=== PATIENT | male | born 1955 | race African-American/Black ===

== ENCOUNTER 2020-09-08 07:00 | Outpatient (CLI) | payer MEDICARE, BC ==
--- NOTE | 2020-09-08 07:50 | ULT ---
Ultrasound of the abdominal aorta: 09/08/2020 COMPARISON: None HISTORY: Physical examination, assess for abdominal aortic aneurysm TECHNIQUE: Multiplanar grayscale sonographic imaging of the abdominal aorta obtained. Provided imagin g includes color flow and spectral analysis FINDINGS: Portions of the abdominal aorta are completely obscured by bowel gas, especially the distal abdominal aorta and the aortic bifurcation. Both common iliac arteries are obscured by bowel gas as well. Proximal abdominal aorta measures up to 2.5 cm and mid abdominal aorta measures up to 2.1 cm. IMPRESSION: Imaged portions of the abdominal aorta demonstrate no evidence for aneurysm. However, the distal abdominal aorta could not be visualized. CT would be required to fully exclude abdominal aortic aneurysm.
[2020-09-08 07:58] LABS: Estimated GFR-MDRD - POC Greater than 90
--- NOTE | 2020-09-08 08:26 | CT ---
CT ANGIOGRAM THORAX WITH CONTRAST: DATE: 09/08/2020 HISTORY: 65-year-old male with thoracic aortic aneurysm. "Z00.00, annual physical exam" COMPARISON: None TECHNIQUE: IV injection of iodinated contrast. 3-D MIP reconstructions. FINDINGS: Ascending aorta: 3.8 cm. Aortic arch: 3.2 cm. Descending thoracic aorta: 2.7 cm. No aortic dissection Moderate calcified and noncalcified atherosclerotic plaque throughout the descending aorta and to a l horacio degree aortic arch. No cardiomegaly, pericardial effusion, or pneumothorax. Trachea and major bronchi are patent and clear. Abutting the posterior medial pleural surface, there is an approximately 5 x 2.5 x 1.5 cm airspace op acity-consolidation in posterior medial base of right lower lobe, located approximately 2.5 to 3 cm superior to the diaphragmatic surface. No associated air bronchogram. There is an associated tiny right pleural effusion abutting this. The rest of the right lung is clear. Left lung is essentially clear. Thoracic vertebral body heights are maintained. No mediastinal or hilar lymphadenopathy. IMPRESSION: 1) ectasia of ascending thoracic aorta. 2) atherosclerosis of thoracic aorta. 3) no thoracic aortic aneurysm. 4) a broad platelike pulmonary opacity in the right lower lobe abutting the pleural surface adjacent to tiny right pleural effusion. Etiology uncertain. Possibilities include organizing pneumonia, pulmonary scar, and lung cancer, although the appearance is not typical for any of these. Recommend s hort interval follow-up chest CT in one to 3 months.
[2020-09-08] MEDS ORDERED: Iopamidol-370 76% 500 ML 1 ML ONE (13:18)
== END 2020-09-08 07:01 | disposition home or self-care (01) ==
LOC: BICULT 07:00
PROVIDERS: ATTEND Family Medicine
DX: Z00.00 Encounter for general adult medical examination without abnormal findings (principal); I77.810 Thoracic aortic ectasia; I70.0 Atherosclerosis of aorta; R91.8 Other nonspecific abnormal finding of lung field; J90 Pleural effusion, not elsewhere classified
CPT/HCPCS: 71275; 76775; 82565; Q9967

== ENCOUNTER 2021-03-02 01:09 | Inpatient (IN) | payer MEDICARE, SELFPAY ==
[2021-03-02 02:02] LABS: #Basophils 0.1 thou/uL (0.0-0.2); #Eosinphils 0.1 thou/uL (0.0-0.7); #Monocytes 0.6 thou/uL (0.11-0.59); #Neutrophils 6.4 thou/uL (1.40-6.50); %Basophils 0.8 % (0.0-1.0); %Eosinophils 1.5 % (0.0-10.0); %Lymphocytes 21.6 % (21.0-51.0); %Monocytes 6.4 % (0.0-10.0); %Neutrophils 69.7 % (42.0-75.0); Hemoglobin 15.3 g/dL (14.0-18.0); Mean Corpuscular HGB CONC 33.9 g/dL (32.0-36.0); Mean Corpuscular Hemoglobin 31.3 pg (27.0-31.0); Mean Corpuscular Volume 92.4 fL (78.0-98.0); Mean Platelet Volume 9.4 fL (7.4-10.4); Platelet Count 171 thou/uL (130-400); RBC Distribution Width 14.3 % (11.5-14.5); Red Blood Cell (RBC) Count 4.88 mill/uL (4.70-6.10); White Blood Cell (WBC) Count 9.2 thou/uL (4.8-10.8)
[2021-03-02 02:25] LABS: ALT (SGPT) 9 U/L (8-55); AST (SGOT) 19 U/L (5-34); Albumin 4.1 g/dL (3.4-4.8); Alkaline Phosphatase 93 U/L (40-110); Anion Gap 19 mmol/L (10-20); BUN (Urea Nitrogen) 8 mg/dL (8.4-25.7); Bilirubin, Total 0.7 mg/dL (0.2-1.2); Calc. Creatinine Clearance 0 mL/min (70-130); Calcium 9.2 mg/dL (7.8-10.44); Carbon Dioxide 13 mmol/L (23-31); Chloride 100 mmol/L (98-107); Globulin 3.8 g/dL (2.4-3.5); Glucose 257 mg/dL (80-115); Potassium 4.1 mmol/L (3.5-5.1); Protein, Total 7.9 g/dL (5.8-8.1); Sodium 128 mmol/L (136-145)
[2021-03-02] MEDS ORDERED: Furosemide 40 MG/4 ML VIAL ONE (03:02)
[2021-03-02 05:16] LABS: SARS-CoV-2 NAA Rapid Test Not Detected (NotDetected)
[2021-03-02 06:05] LABS: Cardiac Risk 3.4 (Less than 4.5)
[2021-03-02 06:36] LABS: Hemoglobin A1c 5.3 % (4.0-6.0)
[2021-03-02 07:22] LABS: Amphetamine Not Detected (NotDetected); Barbiturates Screen Not Detected (NotDetected); Benzodiazepine Screen Not Detected (NotDetected); Cocaine Metabolite Screen Detected (NotDetected); Medtox Control Line Valid? VALID (VALID); Medtox Reader # READER 4; Methadone Not Detected (NotDetected); Methamphetamine Not Detected (NotDetected); Opiate Screen Not Detected (NotDetected); Oxycodone Screen Not Detected (NotDetected); Phencyclidine (PCP) Not Detected (NotDetected); THC/Cannabinoid Screen Not Detected (NotDetected); Tricyclic Screen Not Detected (NotDetected)
[2021-03-02] MEDS ORDERED: Lisinopril 10 MG TAB ONE (08:31)
[2021-03-02] MEDS ORDERED: Furosemide 20 MG/2 ML VIAL ONE (08:31)
[2021-03-02] MEDS ORDERED: Enoxaparin Sodium 40 MG/0.4 ML SYRINGE ONE (08:31)
[2021-03-02] MEDS: Enoxaparin Sodium 40 MG/0.4 ML SYRINGE SC SCH (08:40)
[2021-03-02] MEDS: Lisinopril 10 MG TAB PO SCH (08:41)
[2021-03-02] MEDS: Furosemide 40 MG/4 ML VIAL SLOW IVP SCH (08:41)
[2021-03-02] MEDS ORDERED: Atorvastatin Calcium 40 MG TAB PO SCH (09:00)
[2021-03-02] MEDS ORDERED: Sodium Chloride 0.9% 10 ML ONE (20:38)
[2021-03-02] MEDS: Atorvastatin Calcium 40 MG TAB PO SCH (20:53)
[2021-03-03 04:12] LABS: #Eosinphils 0.1 thou/uL (0.0-0.7); #Lymphocytes 1.5 thou/uL (1.20-3.40); #Monocytes 1.7 thou/uL (0.11-0.59); #Neutrophils 10.5 thou/uL (1.40-6.50); %Basophils 0.2 % (0.0-1.0); %Eosinophils 0.5 % (0.0-10.0); %Lymphocytes 10.6 % (21.0-51.0); %Monocytes 12.1 % (0.0-10.0); %Neutrophils 76.7 % (42.0-75.0); Hemoglobin 13.1 g/dL (14.0-18.0); Mean Corpuscular HGB CONC 32.5 g/dL (32.0-36.0); Mean Corpuscular Hemoglobin 29.5 pg (27.0-31.0); Mean Corpuscular Volume 90.8 fL (78.0-98.0); Mean Platelet Volume 9.6 fL (7.4-10.4); Platelet Count 183 thou/uL (130-400); RBC Distribution Width 14.3 % (11.5-14.5); Red Blood Cell (RBC) Count 4.43 mill/uL (4.70-6.10); White Blood Cell (WBC) Count 13.7 thou/uL (4.8-10.8)
[2021-03-03 04:31] LABS: Anion Gap 15 mmol/L (10-20); BUN (Urea Nitrogen) 18 mg/dL (8.4-25.7); Calc. Creatinine Clearance 64 mL/min (70-130); Calcium 9.5 mg/dL (7.8-10.44); Carbon Dioxide 24 mmol/L (23-31); Chloride 97 mmol/L (98-107); Glucose 116 mg/dL (80-115); Potassium 4.6 mmol/L (3.5-5.1); Sodium 131 mmol/L (136-145)
[2021-03-03] MEDS: Furosemide 40 MG/4 ML VIAL SLOW IVP SCH (08:30)
[2021-03-03] MEDS: Lisinopril 10 MG TAB PO SCH (08:30)
[2021-03-03] MEDS: Carvedilol 3.125 MG TAB PO SCH ×2 (08:30→17:09)
[2021-03-03] MEDS: Enoxaparin Sodium 40 MG/0.4 ML SYRINGE SC SCH (08:30)
[2021-03-03] MEDS: Atorvastatin Calcium 40 MG TAB PO SCH (19:39)
[2021-03-04 04:38] LABS: #Basophils 0.1 thou/uL (0.0-0.2); #Eosinphils 0.2 thou/uL (0.0-0.7); #Lymphocytes 1.9 thou/uL (1.20-3.40); #Neutrophils 5.2 thou/uL (1.40-6.50); %Basophils 1.7 % (0.0-1.0); %Eosinophils 2.4 % (0.0-10.0); %Lymphocytes 22.5 % (21.0-51.0); %Monocytes 12.1 % (0.0-10.0); %Neutrophils 61.2 % (42.0-75.0); Hemoglobin 13.6 g/dL (14.0-18.0); Mean Corpuscular HGB CONC 32.1 g/dL (32.0-36.0); Mean Corpuscular Hemoglobin 29.8 pg (27.0-31.0); Mean Corpuscular Volume 92.9 fL (78.0-98.0); Mean Platelet Volume 9.5 fL (7.4-10.4); Platelet Count 177 thou/uL (130-400); RBC Distribution Width 14.2 % (11.5-14.5); Red Blood Cell (RBC) Count 4.56 mill/uL (4.70-6.10); White Blood Cell (WBC) Count 8.5 thou/uL (4.8-10.8)
[2021-03-04 05:07] LABS: Anion Gap 15 mmol/L (10-20); BUN (Urea Nitrogen) 16 mg/dL (8.4-25.7); Calc. Creatinine Clearance 74 mL/min (70-130); Carbon Dioxide 19 mmol/L (23-31); Chloride 101 mmol/L (98-107); Glucose 88 mg/dL (80-115); Potassium 4.1 mmol/L (3.5-5.1); Sodium 131 mmol/L (136-145)
[2021-03-04] MEDS ORDERED: Diazepam 5 MG TAB PO SCH (07:45)
[2021-03-04] MEDS: Lisinopril 5 MG TAB PO SCH (08:47)
[2021-03-04] MEDS: Communication Order-Pharmacy FS SCH (08:48)
[2021-03-04] MEDS: Carvedilol 3.125 MG TAB PO SCH ×2 (08:48→17:23)
[2021-03-04] MEDS: Enoxaparin Sodium 40 MG/0.4 ML SYRINGE SC SCH (08:48)
[2021-03-04] MEDS: Furosemide 40 MG/4 ML VIAL SLOW IVP SCH (08:48)
[2021-03-04] MEDS: Atorvastatin Calcium 40 MG TAB PO SCH (20:07)
[2021-03-05 04:27] LABS: #Basophils 0.1 thou/uL (0.0-0.2); #Eosinphils 0.3 thou/uL (0.0-0.7); #Lymphocytes 2.1 thou/uL (1.20-3.40); #Monocytes 1.2 thou/uL (0.11-0.59); #Neutrophils 4.8 thou/uL (1.40-6.50); %Eosinophils 3.6 % (0.0-10.0); %Lymphocytes 25.2 % (21.0-51.0); %Neutrophils 56.1 % (42.0-75.0); Hemoglobin 13.4 g/dL (14.0-18.0); Mean Corpuscular HGB CONC 32.2 g/dL (32.0-36.0); Mean Corpuscular Hemoglobin 29.6 pg (27.0-31.0); Mean Platelet Volume 9.5 fL (7.4-10.4); Platelet Count 193 thou/uL (130-400); RBC Distribution Width 14.1 % (11.5-14.5); Red Blood Cell (RBC) Count 4.52 mill/uL (4.70-6.10); White Blood Cell (WBC) Count 8.5 thou/uL (4.8-10.8)
[2021-03-05 04:55] LABS: Anion Gap 17 mmol/L (10-20); BUN (Urea Nitrogen) 19 mg/dL (8.4-25.7); Calc. Creatinine Clearance 74 mL/min (70-130); Calcium 9.2 mg/dL (7.8-10.44); Carbon Dioxide 19 mmol/L (23-31); Chloride 100 mmol/L (98-107); Glucose 84 mg/dL (80-115); Sodium 132 mmol/L (136-145)
[2021-03-05] MEDS: Carvedilol 3.125 MG TAB PO SCH ×2 (05:30→16:53)
[2021-03-05] MEDS: Lisinopril 5 MG TAB PO SCH (05:30)
[2021-03-05] MEDS: Furosemide 40 MG TAB PO SCH (05:30)
[2021-03-05] MEDS: Sodium Chloride 0.9% 1,000 ML IV SCH (06:15)
[2021-03-05] MEDS: Communication Order-Pharmacy FS SCH (08:57)
[2021-03-05] MEDS: Enoxaparin Sodium 40 MG/0.4 ML SYRINGE SC SCH (08:57)
[2021-03-05] MEDS: Atorvastatin Calcium 40 MG TAB PO SCH (20:53)
[2021-03-06 05:13] LABS: Anion Gap 16 mmol/L (10-20); BUN (Urea Nitrogen) 18 mg/dL (8.4-25.7); Calc. Creatinine Clearance 64 mL/min (70-130); Calcium 9.3 mg/dL (7.8-10.44); Carbon Dioxide 21 mmol/L (23-31); Chloride 99 mmol/L (98-107); Glucose 99 mg/dL (80-115); Potassium 3.9 mmol/L (3.5-5.1); Sodium 132 mmol/L (136-145)
[2021-03-06] MEDS: Lisinopril 5 MG TAB PO SCH (05:16)
[2021-03-06] MEDS: Furosemide 40 MG TAB PO SCH (05:16)
[2021-03-06] MEDS: Carvedilol 3.125 MG TAB PO SCH ×2 (05:16→16:36)
[2021-03-06 05:27] LABS: Hemoglobin 13.1 g/dL (14.0-18.0); Mean Corpuscular HGB CONC 32.2 g/dL (32.0-36.0); Mean Corpuscular Hemoglobin 29.6 pg (27.0-31.0); Mean Platelet Volume 9.5 fL (7.4-10.4); Platelet Count 183 thou/uL (130-400); RBC Distribution Width 14.1 % (11.5-14.5); Red Blood Cell (RBC) Count 4.44 mill/uL (4.70-6.10)
[2021-03-06 05:59] LABS: Band 2 % (5-11); Eosinophils 1 % (0-10); Lymphocytes 26 % (21-51); MDiff Complete? YES; Monocytes 12 % (0-10); Neutrophil 59 % (42-75)
[2021-03-06] MEDS ORDERED: Lidocaine 1% (PF) 30 ML VIAL ONE (06:33)
[2021-03-06] MEDS ORDERED: Fentanyl 100 MCG/2 ML VIAL ONE (07:20)
[2021-03-06] MEDS ORDERED: Midazolam HCl 2 mg/2 ml Vial ONE (07:20)
[2021-03-06] MEDS ORDERED: Nitroglycerin 0.4 MG TAB (25 Tab Bottle) SL PRN (07:42)
[2021-03-06] MEDS ORDERED: Acetaminophen/Codeine 30-300mg Tablet PO PRN ×2 (07:42)
[2021-03-06] MEDS ORDERED: Sodium Chloride 0.9% 200 ML IV PRN (07:42)
[2021-03-06] MEDS: Communication Order-Pharmacy FS SCH (08:12)
[2021-03-06] MEDS ORDERED: Iopamidol 370 76% 100 ML VIAL ONE (08:48)
[2021-03-06] MEDS: Sodium Chloride 0.9% 1,000 ML IV SCH (16:35)
[2021-03-06] MEDS: Atorvastatin Calcium 40 MG TAB PO SCH (20:48)
[2021-03-07 05:27] LABS: Anion Gap 15 mmol/L (10-20); BUN (Urea Nitrogen) 10 mg/dL (8.4-25.7); Calc. Creatinine Clearance 77 mL/min (70-130); Calcium 9.1 mg/dL (7.8-10.44); Carbon Dioxide 21 mmol/L (23-31); Chloride 102 mmol/L (98-107); Glucose 84 mg/dL (80-115); Magnesium 1.9 mg/dL (1.6-2.6); Potassium 4.1 mmol/L (3.5-5.1); Sodium 134 mmol/L (136-145)
[2021-03-07] MEDS: Carvedilol 3.125 MG TAB PO SCH ×2 (09:07→17:14)
[2021-03-07] MEDS: Furosemide 40 MG TAB PO SCH (09:07)
[2021-03-07] MEDS: Lisinopril 5 MG TAB PO SCH (09:07)
[2021-03-07] MEDS: Communication Order-Pharmacy FS SCH (09:08)
[2021-03-07] MEDS ORDERED: Loperamide HCl 2 MG CAP PO PRN (20:37)
[2021-03-07] MEDS: Atorvastatin Calcium 40 MG TAB PO SCH (20:47)
[2021-03-08] MEDS: Communication Order-Pharmacy FS SCH (09:44)
[2021-03-08] MEDS: Lisinopril 5 MG TAB PO SCH (09:45)
[2021-03-08] MEDS: Aspirin 81 mg Enteric Coated Tablet PO SCH (09:46)
[2021-03-08] MEDS: Carvedilol 3.125 MG TAB PO SCH ×2 (09:46→16:13)
[2021-03-08] MEDS: Furosemide 40 MG TAB PO SCH (09:47)
[2021-03-08 14:16] VITALS: BMI 16.3
[2021-03-08] MEDS: Atorvastatin Calcium 40 MG TAB PO SCH (20:00)
[2021-03-09] MEDS: Carvedilol 3.125 MG TAB PO SCH (08:17)
[2021-03-09] MEDS: Furosemide 40 MG TAB PO SCH (08:17)
[2021-03-09] MEDS: Lisinopril 5 MG TAB PO SCH (08:17)
[2021-03-09] MEDS: Communication Order-Pharmacy FS SCH (08:17)
[2021-03-09] MEDS: Aspirin 81 mg Enteric Coated Tablet PO SCH (08:17)
[2021-03-09 11:51] VITALS: TEMP 97.6
[2021-03-09 12:05] VITALS: BP 149/63
== END 2021-03-09 14:40 | disposition home or self-care (01) | DRG 917 ==
LOC: ERS 01:09 → ERHOLD 03:04 → 2NO 17:07
PROVIDERS: ADMIT Emergency Medicine; ATTEND Emergency Medicine
PROC: 4A023N7 Measurement of Cardiac Sampling and Pressure, Left Heart, Percutaneous Approach (ICD-10-PCS; principal; 2021-03-06)
PROC: B2111ZZ Fluoroscopy of Multiple Coronary Arteries using Low Osmolar Contrast (ICD-10-PCS; 2021-03-06)
PROC: B2151ZZ Fluoroscopy of Left Heart using Low Osmolar Contrast (ICD-10-PCS; 2021-03-06)
DX: T40.5X1A Poisoning by cocaine, accidental (unintentional), initial encounter (principal); J96.01 Acute respiratory failure with hypoxia; I50.23 Acute on chronic systolic (congestive) heart failure; E87.3 Alkalosis; E87.1 Hypo-osmolality and hyponatremia; Z20.822 Contact with and (suspected) exposure to COVID-19; F14.10 Cocaine abuse, uncomplicated; I65.01 Occlusion and stenosis of right vertebral artery; F10.10 Alcohol abuse, uncomplicated; E78.5 Hyperlipidemia, unspecified; D72.829 Elevated white blood cell count, unspecified; D64.9 Anemia, unspecified; R91.1 Solitary pulmonary nodule; F17.210 Nicotine dependence, cigarettes, uncomplicated; I49.3 Ventricular premature depolarization; I25.5 Ischemic cardiomyopathy; Z79.899 Other long term (current) drug therapy; Z98.49 Cataract extraction status, unspecified eye; Z91.14 Patient's other noncompliance with medication regimen
CPT/HCPCS: 0240U; 36415; 36416; 71045; 71250; 74230; 76942; 80048; 80053; 80061; 80306; 83036; 83735; 83880; 84484; 85025; 93005; 93306; 93458; 93798; 93880; 94640; 94660; 94760; 96374; 99152; J1650; J1940; J2001; J2250; J3010; J7620; Q9967

== ENCOUNTER 2021-07-08 00:44 | Inpatient (IN) | payer SELFPAY ==
[2021-07-08 01:34] LABS: #Basophils 0.2 thou/uL (0.0-0.2); #Eosinphils 0.3 thou/uL (0.0-0.7); #Lymphocytes 2.3 thou/uL (1.20-3.40); #Monocytes 0.3 thou/uL (0.11-0.59); #Neutrophils 3.8 thou/uL (1.40-6.50); %Basophils 2.3 % (0.0-1.0); %Lymphocytes 33.2 % (21.0-51.0); %Monocytes 4.1 % (0.0-10.0); %Neutrophils 56.4 % (42.0-75.0); Hemoglobin 15.7 g/dL (14.0-18.0); Mean Corpuscular HGB CONC 32.6 g/dL (32.0-36.0); Mean Corpuscular Hemoglobin 31.7 pg (27.0-31.0); Mean Corpuscular Volume 97.4 fL (78.0-98.0); Mean Platelet Volume 9.4 fL (7.4-10.4); Platelet Count 187 thou/uL (130-400); RBC Distribution Width 15.2 % (11.5-14.5); Red Blood Cell (RBC) Count 4.94 mill/uL (4.70-6.10); White Blood Cell (WBC) Count 6.8 thou/uL (4.8-10.8)
[2021-07-08] MEDS ORDERED: Lorazepam 2 MG/ML VIAL IM PRN (01:35)
[2021-07-08] MEDS ORDERED: Lorazepam 1 MG TAB PO PRN (01:35)
[2021-07-08 01:51] LABS: ALT (SGPT) 21 U/L (8-55); AST (SGOT) 49 U/L (5-34); Albumin 4.4 g/dL (3.4-4.8); Alkaline Phosphatase 130 U/L (40-110); BUN (Urea Nitrogen) 13 mg/dL (8.4-25.7); Bilirubin, Total 0.7 mg/dL (0.2-1.2); Calc. Creatinine Clearance 0 mL/min (70-130); Carbon Dioxide 21 mmol/L (23-31); Chloride 104 mmol/L (98-107); Globulin 4.1 g/dL (2.4-3.5); Glucose 168 mg/dL (80-115); Potassium 4.8 mmol/L (3.5-5.1); Protein, Total 8.5 g/dL (5.8-8.1); Sodium 136 mmol/L (136-145)
[2021-07-08 01:53] LABS: Anion Gap 16 mmol/L (10-20)
[2021-07-08] MEDS ORDERED: Aspirin Chewable 81 MG TAB ONE (02:07)
[2021-07-08] MEDS ORDERED: Furosemide 40 MG/4 ML VIAL ONE (02:07)
[2021-07-08] MEDS ORDERED: Nitroglycerin 2% Ointment 1 INCH/1 GM Packet ONE (02:07)
[2021-07-08 02:16] LABS: CKMB 2.1 ng/mL (0-6.6)
[2021-07-08 03:12] LABS: Magnesium 2.1 mg/dL (1.6-2.6); Phosphorus 4.2 mg/dL (2.3-4.7)
[2021-07-08 03:31] LABS: Syphilis Antibody Nonreactive (Nonreactive); Syphilis Antibody Index 0.04 S/CO (<1.00 Non-Reactive)
[2021-07-08 04:09] LABS: Amphetamine Not Detected (NotDetected); Barbiturates Screen Not Detected (NotDetected); Benzodiazepine Screen Not Detected (NotDetected); Cocaine Metabolite Screen Not Detected (NotDetected); Methadone Not Detected (NotDetected); Methamphetamine Not Detected (NotDetected); Opiate Screen Not Detected (NotDetected); Oxycodone Screen Not Detected (NotDetected); Phencyclidine (PCP) Not Detected (NotDetected); THC/Cannabinoid Screen Not Detected (NotDetected); Tricyclic Screen Not Detected (NotDetected)
[2021-07-08 05:02] LABS: Hemoglobin A1c 4.8 % (4.0-6.0)
[2021-07-08 05:14] LABS: ALT (SGPT) 19 U/L (8-55); AST (SGOT) 41 U/L (5-34); Albumin 4.1 g/dL (3.4-4.8); Alkaline Phosphatase 123 U/L (40-110); Bilirubin, Direct 0.3 mg/dL (0.1-0.3); Bilirubin, Total 0.6 mg/dL (0.2-1.2); Protein, Total 8.3 g/dL (5.8-8.1)
[2021-07-08] MEDS: Nicotine 14 MG PATCH TD SCH (08:27)
[2021-07-08] MEDS: Multivit, Therapeutic 1 TAB PO SCH (08:30)
[2021-07-08] MEDS: Atorvastatin Calcium 40 MG TAB PO SCH (08:30)
[2021-07-08] MEDS: Folic Acid 1 MG TAB PO SCH (08:30)
[2021-07-08 08:59] LABS: SARS-CoV-2 NAA Rapid Test Not Detected (NotDetected)
[2021-07-08] MEDS ORDERED: Aspirin Chewable 81 MG TAB PO SCH (09:00)
[2021-07-08] MEDS ORDERED: Lisinopril 5 MG TAB PO SCH (09:00)
[2021-07-08] MEDS ORDERED: Furosemide 40 MG/4 ML VIAL SLOW IVP SCH (09:15)
[2021-07-08] MEDS ORDERED: FLU VACC QS2021-22(65YR UP)/PF 240 MCG/0.7 ML SYRINGE IM ONE (12:00)
[2021-07-08 14:17] LABS: HBCM Index 0.06 S/CO (0-0.79); HBSAg Index 0.29 S/CO (0-0.99); Hep A IgM AB Non-Reactive (NonReactive); Hep A IgM S/CO 0.13 S/CO (0-0.79); Hep B Surf Ag Non-Reactive S/CO (NonReactive); Hep C IgG Ab Non-Reactive (NonReactive); Hep C Index 0.08 S/CO (0-0.79); Hepatitis B Core IgM Abs Non-Reactive (NonReactive)
[2021-07-08] MEDS: Carvedilol 3.125 MG TAB PO SCH (16:47)
[2021-07-09] MEDS ORDERED: Lorazepam 1 MG TAB PO PRN (01:35)
[2021-07-09] MEDS: Nicotine 14 MG PATCH TD SCH (02:48)
[2021-07-09 06:12] LABS: Anion Gap 11 mmol/L (10-20); BUN (Urea Nitrogen) 20 mg/dL (8.4-25.7); Calc. Creatinine Clearance 49 mL/min (70-130); Calcium 9.4 mg/dL (7.8-10.44); Carbon Dioxide 25 mmol/L (23-31); Chloride 101 mmol/L (98-107); Glucose 97 mg/dL (80-115); Potassium 4.3 mmol/L (3.5-5.1); Sodium 133 mmol/L (136-145)
[2021-07-09 06:31] LABS: HIV (1/2) Antibody/Antigen Non-Reactive (NonReactive); HIV 1/2 INDEX 0.14 S/CO (<1.00)
[2021-07-09] MEDS ORDERED: Furosemide 40 MG TAB PO SCH (07:30)
[2021-07-09] MEDS: Folic Acid 1 MG TAB PO SCH (08:27)
[2021-07-09] MEDS: Aspirin 81 mg Enteric Coated Tablet PO SCH (08:27)
[2021-07-09] MEDS: Atorvastatin Calcium 40 MG TAB PO SCH (08:27)
[2021-07-09] MEDS: Carvedilol 3.125 MG TAB PO SCH (08:27)
[2021-07-09] MEDS: Multivit, Therapeutic 1 TAB PO SCH (08:27)
[2021-07-09] MEDS ORDERED: Metoprolol Tartrate 25 MG TAB PO SCH (21:00)
[2021-07-10] MEDS ORDERED: Lorazepam 1 MG TAB PO PRN (01:35)
[2021-07-10] MEDS: Nicotine 14 MG PATCH TD SCH (03:12)
[2021-07-10] MEDS: Aspirin 81 mg Enteric Coated Tablet PO SCH (08:10)
[2021-07-10] MEDS: Folic Acid 1 MG TAB PO SCH (08:10)
[2021-07-10] MEDS: Multivit, Therapeutic 1 TAB PO SCH (08:10)
[2021-07-10] MEDS: Atorvastatin Calcium 40 MG TAB PO SCH (08:10)
[2021-07-10] MEDS: Metoprolol Tartrate 25 MG TAB PO SCH ×2 (08:13→20:45)
[2021-07-10] MEDS ORDERED: Nicotine 14 MG PATCH TD SCH (22:00)
[2021-07-11] MEDS ORDERED: Lorazepam 0.5 MG TAB PO PRN (01:35)
[2021-07-11 05:15] VITALS: BMI 171274.8
[2021-07-11] MEDS ORDERED: Furosemide 20 MG TAB PO SCH (09:00)
[2021-07-11] MEDS ORDERED: Thiamine 100 MG TAB PO SCH (09:00)
[2021-07-11] MEDS: Folic Acid 1 MG TAB PO SCH (09:00)
[2021-07-11] MEDS: Atorvastatin Calcium 40 MG TAB PO SCH (09:00)
[2021-07-11] MEDS: Aspirin 81 mg Enteric Coated Tablet PO SCH (09:00)
[2021-07-11] MEDS: Metoprolol Tartrate 25 MG TAB PO SCH (09:00)
[2021-07-11] MEDS: Multivit, Therapeutic 1 TAB PO SCH (09:00)
[2021-07-11 15:40] VITALS: BP 108/68; TEMP 97.7
== END 2021-07-11 18:18 | disposition home or self-care (01) | DRG 280 ==
LOC: ERS 00:44 → ERHOLD 01:31 → IMCU/EMU 04:41 → T4-A 12:46 → NEURO 18:17 → 2NO 07-09 15:37
PROVIDERS: ADMIT Family Medicine; ATTEND Family Medicine
PROC: 5A09357 Assistance with Respiratory Ventilation, Less than 24 Consecutive Hours, Continuous Positive Airway Pressure (ICD-10-PCS; principal; 2021-07-08)
DX: I11.0 Hypertensive heart disease with heart failure (principal); I50.23 Acute on chronic systolic (congestive) heart failure; I21.A1 Myocardial infarction type 2; I25.10 Atherosclerotic heart disease of native coronary artery without angina pectoris; J44.9 Chronic obstructive pulmonary disease, unspecified; F10.10 Alcohol abuse, uncomplicated; F14.10 Cocaine abuse, uncomplicated; I50.84 End stage heart failure; F17.210 Nicotine dependence, cigarettes, uncomplicated; I95.9 Hypotension, unspecified; Z98.49 Cataract extraction status, unspecified eye; Z91.14 Patient's other noncompliance with medication regimen; Z79.899 Other long term (current) drug therapy; Z79.82 Long term (current) use of aspirin
CPT/HCPCS: 36415; 71045; 80048; 80053; 80074; 80306; 82553; 83036; 83735; 83880; 84100; 84443; 84484; 85025; 86780; 87389; 93005; 93798; 94640; 94660; 94760; 96374; J1940; J7620; U0002

== ENCOUNTER 2021-08-26 17:21 | Inpatient (IN) | payer SELFPAY ==
[~2021-08-26 17:21] MED LIST: Iopamidol-370 76% 500 ML 1 ML ONE
[2021-08-26 18:11] LABS: #Lymphocytes 1.4 thou/uL (1.20-3.40); #Monocytes 0.8 thou/uL (0.11-0.59); #Neutrophils 6.1 thou/uL (1.40-6.50); %Basophils 0.4 % (0.0-1.0); %Eosinophils 0.5 % (0.0-10.0); %Lymphocytes 16.5 % (21.0-51.0); %Monocytes 9.1 % (0.0-10.0); %Neutrophils 73.5 % (42.0-75.0); Hemoglobin 16.8 g/dL (14.0-18.0); Mean Corpuscular HGB CONC 32.6 g/dL (32.0-36.0); Mean Corpuscular Volume 95.2 fL (78.0-98.0); Mean Platelet Volume 9.5 fL (7.4-10.4); Platelet Count 171 thou/uL (130-400); RBC Distribution Width 15.9 % (11.5-14.5); Red Blood Cell (RBC) Count 5.42 mill/uL (4.70-6.10); White Blood Cell (WBC) Count 8.3 thou/uL (4.8-10.8)
[2021-08-26 18:32] LABS: ALT (SGPT) 28 U/L (8-55); AST (SGOT) 35 U/L (5-34); Albumin 2.9 g/dL (3.4-4.8); Alkaline Phosphatase 204 U/L (40-110); Anion Gap 20 mmol/L (10-20); BUN (Urea Nitrogen) 33 mg/dL (8.4-25.7); Bilirubin, Total 1.5 mg/dL (0.2-1.2); CK (CPK) 332 U/L (30-200); Calc. Creatinine Clearance 0 mL/min (70-130); Calcium 8.6 mg/dL (7.8-10.44); Carbon Dioxide 20 mmol/L (23-31); Chloride 102 mmol/L (98-107); Globulin 3.1 g/dL (2.4-3.5); Glucose 152 mg/dL (80-115); Potassium 4.4 mmol/L (3.5-5.1); Sodium 138 mmol/L (136-145)
[2021-08-26 18:54] LABS: CKMB 3.3 ng/mL (0-6.6)
[2021-08-26] MEDS ORDERED: Aspirin Chewable 81 MG TAB ONE (19:32)
[2021-08-26] MEDS ORDERED: Enoxaparin Sodium 80 MG/0.8 ML SYRINGE ONE (19:32)
[2021-08-26 20:00] LABS: Actual Bicarbonate (HCO3a) 17.7 mEq/L (22-28); Analyzer IN Cardio ER; Base Excess (BEa) -7.2 mEq/L (-2.0 to +3.0); CO2 Tension 34.9 mmHg (35.0-45.0); Calcium, Ionized (arterial) 1.13 mmol/L (1.12-1.30); Carboxyhemoglobin (COHb) 0.7 gm% (0.0-3.0); Hemoglobin (Hb) 16.7 g/dL (14.0-18.0); O2 Tension (PaO2), arterial 68.7 mmHg (> 80.0); Potassium - ABG Lab 3.76 mmol/L (3.70-5.30); pH, Arterial 7.32 (7.35-7.45)
[2021-08-26 20:07] LABS: ALV-art Gradient 115.835 mmHg (0-20); Puncture Site LBA
[2021-08-26 20:41] LABS: SARS-CoV-2 NAA Rapid Test Not Detected (NotDetected)
[2021-08-26] MEDS ORDERED: Acetaminophen 500 MG TAB ONE (23:18)
[2021-08-27 00:03] LABS: CKMB 3.3 ng/mL (0-6.6)
[2021-08-27] MEDS ORDERED: Ondansetron PF 4 MG/2 ML Vial IVP PRN (00:49)
[2021-08-27] MEDS ORDERED: Acetaminophen 325 MG TAB PO PRN (00:49)
[2021-08-27] MEDS ORDERED: Furosemide 40 MG/4 ML VIAL SLOW IVP SCH (01:15)
[2021-08-27 04:58] LABS: #Lymphocytes 1.3 thou/uL (1.20-3.40); #Monocytes 0.8 thou/uL (0.11-0.59); #Neutrophils 6.4 thou/uL (1.40-6.50); %Basophils 0.1 % (0.0-1.0); %Eosinophils 0.3 % (0.0-10.0); %Lymphocytes 15.3 % (21.0-51.0); %Monocytes 8.8 % (0.0-10.0); %Neutrophils 75.6 % (42.0-75.0); Hemoglobin 15.9 g/dL (14.0-18.0); Mean Corpuscular HGB CONC 33.4 g/dL (32.0-36.0); Mean Corpuscular Volume 92.8 fL (78.0-98.0); Mean Platelet Volume 9.8 fL (7.4-10.4); Platelet Count 152 thou/uL (130-400); RBC Distribution Width 15.7 % (11.5-14.5); Red Blood Cell (RBC) Count 5.14 mill/uL (4.70-6.10); White Blood Cell (WBC) Count 8.5 thou/uL (4.8-10.8)
[2021-08-27 05:14] LABS: Anion Gap 14 mmol/L (10-20); BUN (Urea Nitrogen) 29 mg/dL (8.4-25.7); Calc. Creatinine Clearance 57 mL/min (70-130); Calcium 8.7 mg/dL (7.8-10.44); Carbon Dioxide 24 mmol/L (23-31); Chloride 100 mmol/L (98-107); Glucose 105 mg/dL (80-115); Potassium 3.7 mmol/L (3.5-5.1); Sodium 134 mmol/L (136-145)
[2021-08-27 05:15] LABS: ALT (SGPT) 25 U/L (8-55); AST (SGOT) 28 U/L (5-34); Albumin 2.7 g/dL (3.4-4.8); Alkaline Phosphatase 190 U/L (40-110); Bilirubin, Direct 0.7 mg/dL (0.1-0.3); Bilirubin, Total 1.2 mg/dL (0.2-1.2); Protein, Total 5.7 g/dL (5.8-8.1)
[2021-08-27] MEDS: Furosemide 40 MG/4 ML VIAL SLOW IVP SCH ×2 (05:58→15:27)
[2021-08-27 07:02] LABS: Amphetamine Not Detected (NotDetected); Barbiturates Screen Not Detected (NotDetected); Benzodiazepine Screen Not Detected (NotDetected); Cocaine Metabolite Screen Not Detected (NotDetected); Methadone Not Detected (NotDetected); Methamphetamine Not Detected (NotDetected); Opiate Screen Not Detected (NotDetected); Oxycodone Screen Not Detected (NotDetected); Phencyclidine (PCP) Not Detected (NotDetected); THC/Cannabinoid Screen Not Detected (NotDetected); Tricyclic Screen Not Detected (NotDetected)
[2021-08-27] MEDS: Enoxaparin Sodium 60 MG/0.6 ML SYRINGE SC SCH ×2 (08:09→19:49)
[2021-08-27] MEDS: Atorvastatin Calcium 40 MG TAB PO SCH (19:49)
[2021-08-28 05:47] LABS: #Basophils 0.1 thou/uL (0.0-0.2); #Lymphocytes 1.5 thou/uL (1.20-3.40); #Monocytes 0.8 thou/uL (0.11-0.59); #Neutrophils 4.9 thou/uL (1.40-6.50); %Eosinophils 0.5 % (0.0-10.0); %Lymphocytes 20.5 % (21.0-51.0); Hemoglobin 15.1 g/dL (14.0-18.0); Mean Corpuscular HGB CONC 32.6 g/dL (32.0-36.0); Mean Corpuscular Hemoglobin 30.2 pg (27.0-31.0); Mean Corpuscular Volume 92.4 fL (78.0-98.0); Mean Platelet Volume 9.7 fL (7.4-10.4); Platelet Count 147 thou/uL (130-400); RBC Distribution Width 15.7 % (11.5-14.5); White Blood Cell (WBC) Count 7.3 thou/uL (4.8-10.8)
[2021-08-28] MEDS: Furosemide 40 MG/4 ML VIAL SLOW IVP SCH (05:57)
[2021-08-28 06:09] LABS: Anion Gap 14 mmol/L (10-20); BUN (Urea Nitrogen) 26 mg/dL (8.4-25.7); Calc. Creatinine Clearance 58 mL/min (70-130); Calcium 8.7 mg/dL (7.8-10.44); Carbon Dioxide 27 mmol/L (23-31); Chloride 97 mmol/L (98-107); Glucose 95 mg/dL (80-115); Potassium 3.3 mmol/L (3.5-5.1); Sodium 135 mmol/L (136-145)
[2021-08-28] MEDS: Enoxaparin Sodium 60 MG/0.6 ML SYRINGE SC SCH ×2 (09:27→19:59)
[2021-08-28] MEDS ORDERED: Potassium Chloride 20 MEQ TAB PO SCH (11:30)
[2021-08-28] MEDS ORDERED: Furosemide 20 MG/2 ML VIAL SLOW IVP SCH (12:00)
[2021-08-28 16:22] LABS: Actual Bicarbonate (HCO3v) 22 mEq/L (22-28); Base Excess -3.7 mEq/L (-2.0 to +3.0); Calcium, Ionized (venous) 0.98 mmol/L (1.16-1.32); Chloride (VBG) 95 mmol/L (98-106); Hemoglobin (Hb) 17.5 g/dL (12.6-17.4); Potassium (VBG) 4.59 mmol/L (3.70-5.30); Sodium 132.7 mmol/L (133-146); pH (venous) 7.33 (7.32-7.43)
[2021-08-28] MEDS: Potassium Chloride 20 MEQ TAB PO SCH (17:01)
[2021-08-28] MEDS: Atorvastatin Calcium 40 MG TAB PO SCH (19:59)
[2021-08-29 08:40] LABS: #Basophils 0.2 thou/uL (0.0-0.2); #Lymphocytes 1.5 thou/uL (1.20-3.40); #Monocytes 0.9 thou/uL (0.11-0.59); #Neutrophils 10.3 thou/uL (1.40-6.50); %Basophils 1.2 % (0.0-1.0); %Eosinophils 0.3 % (0.0-10.0); %Lymphocytes 11.7 % (21.0-51.0); %Neutrophils 79.8 % (42.0-75.0); Mean Corpuscular HGB CONC 31.9 g/dL (32.0-36.0); Mean Corpuscular Hemoglobin 30.6 pg (27.0-31.0); Mean Corpuscular Volume 95.8 fL (78.0-98.0); Mean Platelet Volume 9.7 fL (7.4-10.4); Platelet Count 138 thou/uL (130-400); RBC Distribution Width 15.9 % (11.5-14.5); Red Blood Cell (RBC) Count 5.55 mill/uL (4.70-6.10); White Blood Cell (WBC) Count 12.9 thou/uL (4.8-10.8)
[2021-08-29 08:59] LABS: Calcium 9.1 mg/dL (7.8-10.44); Chloride 95 mmol/L (98-107); Potassium 5.3 mmol/L (3.5-5.1); Sodium 130 mmol/L (136-145)
[2021-08-29] MEDS ORDERED: Furosemide 40 MG/4 ML VIAL SLOW IVP SCH (09:00)
[2021-08-29 09:01] LABS: BUN (Urea Nitrogen) 37 mg/dL (8.4-25.7); Calc. Creatinine Clearance 45 mL/min (70-130); Carbon Dioxide 12 mmol/L (23-31)
[2021-08-29 09:03] LABS: Anion Gap 28 mmol/L (10-20); Glucose 31 mg/dL (80-115)
[2021-08-29] MEDS ORDERED: Dextrose 50% Abboject 50 ML SYRINGE ONE (09:13)
[2021-08-29] MEDS: Potassium Chloride 20 MEQ TAB PO SCH (09:17)
[2021-08-29] MEDS: Dextrose 50% Abboject 50 ML SYRINGE SLOW IVP SCH ×2 (09:18→10:17)
[2021-08-29] MEDS: Dextrose 10% in Water 1,000 ML IV SCH (11:24)
[2021-08-29] MEDS: Enoxaparin Sodium 60 MG/0.6 ML SYRINGE SC SCH ×2 (11:41→21:41)
[2021-08-29 12:37] LABS: Glucose 201 mg/dL (80-115)
[2021-08-29 12:42] LABS: Lactic Acid 13.1 mmol/L (0.5-2.2)
[2021-08-29 17:37] LABS: Anion Gap 33 mmol/L (10-20); BUN (Urea Nitrogen) 40 mg/dL (8.4-25.7); Calc. Creatinine Clearance 39 mL/min (70-130); Chloride 95 mmol/L (98-107); Glucose 182 mg/dL (80-115); Potassium 4.8 mmol/L (3.5-5.1); Sodium 132 mmol/L (136-145)
[2021-08-29 17:46] LABS: Carbon Dioxide 9 mmol/L (23-31)
[2021-08-29 18:07] LABS: Actual Bicarbonate (HCO3a) 10.1 mEq/L (22-28); Calcium, Ionized (arterial) 1.09 mmol/L (1.12-1.30); Carboxyhemoglobin (COHb) 0.5 gm% (0.0-3.0); Hemoglobin (Hb) 16.1 g/dL (14.0-18.0); O2 Tension (PaO2), arterial 155.7 mmHg (> 80.0); Potassium - ABG Lab 4.87 mmol/L (3.70-5.30); pH, Arterial 7.33 (7.35-7.45)
[2021-08-29 18:11] LABS: CO2 Tension 19.6 mmHg (35.0-45.0); Puncture Site LRA
[2021-08-29 20:18] LABS: Lactic Acid 13.1 mmol/L (0.5-2.2)
[2021-08-29] MEDS ORDERED: Lactated Ringer's 1,000 ML IV SCH (21:00)
[2021-08-29] MEDS ORDERED: Vancomycin 1.5 GRAM/300 ML BAG 1.5 GM in Premix Bag 1 BAG IVPB SCH (21:00)
[2021-08-29] MEDS: Atorvastatin Calcium 40 MG TAB PO SCH (21:39)
[2021-08-29] MEDS: Cefepime 1 GM in Sodium Chloride 0.9% 100 ML IVPB SCH (21:42)
[2021-08-30 00:52] LABS: Base Excess -13.4 mEq/L (-2.0 to +3.0); Calcium, Ionized (venous) 1.01 mmol/L (1.16-1.32); Chloride (VBG) 91 mmol/L (98-106); Hemoglobin (Hb) 16.5 g/dL (12.6-17.4); Potassium (VBG) 5.23 mmol/L (3.70-5.30); Sodium 127.1 mmol/L (133-146)
[2021-08-30 00:53] LABS: Actual Bicarbonate (HCO3v) 14 mEq/L (22-28)
[2021-08-30] MEDS: Dextrose 10% in Water 1,000 ML IV SCH ×2 (01:16→14:10)
[2021-08-30] MEDS: SODIUM BICARBONATE IV SCH ×2 (01:46→12:45)
[2021-08-30] MEDS: LACTATED RINGER S IV SCH ×2 (01:46→12:45)
[2021-08-30 02:31] LABS: Lactic Acid Greater than 13.4 mmol/L (0.5-2.2)
[2021-08-30 05:24] LABS: Glucose 37 mg/dL (80-115)
[2021-08-30 05:48] LABS: Lactic Acid 16.3 mmol/L (0.5-2.2)
[2021-08-30 06:30] LABS: Band 1 % (5-11); Hemoglobin 16.1 g/dL (14.0-18.0); Hemoglobin A1c 6.4 % (4.0-6.0); Lymphocytes 10 % (21-51); MDiff Complete? YES; Mean Corpuscular HGB CONC 31.1 g/dL (32.0-36.0); Mean Corpuscular Hemoglobin 30.6 pg (27.0-31.0); Mean Corpuscular Volume 98.4 fL (78.0-98.0); Mean Platelet Volume 10.5 fL (7.4-10.4); Monocytes 11 % (0-10); Neutrophil 78 % (42-75); Platelet Count 101 thou/uL (130-400); Platelet Morphology Comment Appears Decreased; RBC Morphology Normal; Red Blood Cell (RBC) Count 5.26 mill/uL (4.70-6.10); White Blood Cell (WBC) Count 12.4 thou/uL (4.8-10.8)
[2021-08-30 06:32] LABS: Actual Bicarbonate (HCO3a) 10.1 mEq/L (22-28); Base Excess (BEa) -13.7 mEq/L (-2.0 to +3.0); Calcium, Ionized (arterial) 1.05 mmol/L (1.12-1.30); Carboxyhemoglobin (COHb) 0.7 gm% (0.0-3.0); Hemoglobin (Hb) 15.5 g/dL (14.0-18.0); O2 Tension (PaO2), arterial 140.9 mmHg (> 80.0); Potassium - ABG Lab 5.05 mmol/L (3.70-5.30); pH, Arterial 7.31 (7.35-7.45)
[2021-08-30 06:35] LABS: ALT (SGPT) 98 U/L (8-55); AST (SGOT) 164 U/L (5-34); Albumin 3.1 g/dL (3.4-4.8); Alkaline Phosphatase 204 U/L (40-110); Anion Gap 37 mmol/L (10-20); BUN (Urea Nitrogen) 45 mg/dL (8.4-25.7); Bilirubin, Total 2.2 mg/dL (0.2-1.2); Calc. Creatinine Clearance 40 mL/min (70-130); Calcium 9.5 mg/dL (7.8-10.44); Carbon Dioxide 10 mmol/L (23-31); Chloride 91 mmol/L (98-107); Globulin 3.4 g/dL (2.4-3.5); Potassium 5.5 mmol/L (3.5-5.1); Protein, Total 6.5 g/dL (5.8-8.1); Sodium 132 mmol/L (136-145)
[2021-08-30 06:36] LABS: CO2 Tension 20.8 mmHg (35.0-45.0); Puncture Site RRA
[2021-08-30 06:38] LABS: Glucose 31 mg/dL (80-115)
[2021-08-30 08:38] LABS: Glucose 107 mg/dL (80-115)
[2021-08-30] MEDS ORDERED: Sterile Water 10 ML ONE (09:23)
[2021-08-30] MEDS: Enoxaparin Sodium 60 MG/0.6 ML SYRINGE SC SCH ×2 (09:29→21:24)
[2021-08-30] MEDS: Cefepime 1 GM in Sodium Chloride 0.9% 100 ML IVPB SCH (09:29)
[2021-08-30 12:12] LABS: Anion Gap 29 mmol/L (10-20); BUN (Urea Nitrogen) 49 mg/dL (8.4-25.7); Calc. Creatinine Clearance 36 mL/min (70-130); Calcium 8.9 mg/dL (7.8-10.44); Carbon Dioxide 15 mmol/L (23-31); Chloride 89 mmol/L (98-107); Glucose 138 mg/dL (80-115); Potassium 5.1 mmol/L (3.5-5.1); Sodium 128 mmol/L (136-145)
[2021-08-30 14:56] LABS: Pleural Fluid, Protein 1.1 g/dL
[2021-08-30 15:05] LABS: RBC Count-Automated (BF) 1093 /cu.mm; WBC/Nucleated-Auto (BF) 264 /cu.mm
[2021-08-30 15:40] LABS: Body Fluid Source Thoracentesis Fluid; Clarity Hazy (Clear); Tube # EDTA
[2021-08-30 15:41] LABS: BF Color Yellow
[2021-08-30 15:52] LABS: BF Segmented Neutrophils 18 %; Cell Count Non Hematic 32 %; Lymphocytes 50 %
[2021-08-30 17:04] LABS: Actual Bicarbonate (HCO3v) 23 mEq/L (22-28); Base Excess -1.1 mEq/L (-2.0 to +3.0); Calcium, Ionized (venous) 0.99 mmol/L (1.16-1.32); Chloride (VBG) 89 mmol/L (98-106); Hemoglobin (Hb) 14.5 g/dL (12.6-17.4); Potassium (VBG) 4.34 mmol/L (3.70-5.30); Sodium 129.3 mmol/L (133-146); pH (venous) 7.41 (7.32-7.43)
[2021-08-30] MEDS ORDERED: Vancomycin 1 GM in Premix Bag 1 BAG IVPB SCH (21:00)
[2021-08-30] MEDS: Cefepime 2 GM in Sodium Chloride 0.9% 100 ML IVPB SCH (21:24)
[2021-08-31] MEDS: SODIUM BICARBONATE IV SCH (01:21)
[2021-08-31] MEDS: LACTATED RINGER S IV SCH (01:21)
[2021-08-31 04:17] LABS: Base Excess 9.6 mEq/L (-2.0 to +3.0); Calcium, Ionized (venous) 1.04 mmol/L (1.16-1.32); Chloride (VBG) 91 mmol/L (98-106); Hemoglobin (Hb) 13.4 g/dL (12.6-17.4); Sodium 132.7 mmol/L (133-146); pH (venous) 7.44 (7.32-7.43)
[2021-08-31 04:18] LABS: Actual Bicarbonate (HCO3v) 35 mEq/L (22-28)
[2021-08-31 04:46] LABS: ALT (SGPT) 288 U/L (8-55); AST (SGOT) 617 U/L (5-34); Albumin 2.6 g/dL (3.4-4.8); Alkaline Phosphatase 201 U/L (40-110); Anion Gap 13 mmol/L (10-20); BUN (Urea Nitrogen) 47 mg/dL (8.4-25.7); Bilirubin, Total 1.8 mg/dL (0.2-1.2); Calc. Creatinine Clearance 45 mL/min (70-130); Calcium 8.5 mg/dL (7.8-10.44); Carbon Dioxide 33 mmol/L (23-31); Chloride 94 mmol/L (98-107); Globulin 2.9 g/dL (2.4-3.5); Glucose 100 mg/dL (80-115); Potassium 4.1 mmol/L (3.5-5.1); Protein, Total 5.5 g/dL (5.8-8.1); Sodium 136 mmol/L (136-145)
[2021-08-31 05:06] LABS: #Lymphocytes 1.1 thou/uL (1.20-3.40); #Monocytes 1.4 thou/uL (0.11-0.59); #Neutrophils 9.9 thou/uL (1.40-6.50); %Basophils 0.1 % (0.0-1.0); %Eosinophils 0.1 % (0.0-10.0); %Lymphocytes 8.8 % (21.0-51.0); %Monocytes 11.5 % (0.0-10.0); %Neutrophils 79.5 % (42.0-75.0); Mean Corpuscular HGB CONC 33.1 g/dL (32.0-36.0); Mean Corpuscular Hemoglobin 30.5 pg (27.0-31.0); Mean Corpuscular Volume 92.3 fL (78.0-98.0); Mean Platelet Volume 11.1 fL (7.4-10.4); Platelet Count 97 thou/uL (130-400); RBC Distribution Width 15.7 % (11.5-14.5); Red Blood Cell (RBC) Count 4.25 mill/uL (4.70-6.10); White Blood Cell (WBC) Count 12.4 thou/uL (4.8-10.8)
[2021-08-31] MEDS: Cefepime 2 GM in Sodium Chloride 0.9% 100 ML IVPB SCH (09:29)
[2021-08-31] MEDS: Enoxaparin Sodium 60 MG/0.6 ML SYRINGE SC SCH ×2 (09:29→21:35)
[2021-08-31] MEDS ORDERED: Sodium Chloride 0.45% 1,000 ML IV SCH (10:30)
[2021-08-31] MEDS: Dextrose 5 %-0.45 % NaCl 1,000 ML IV SCH (10:39)
[2021-08-31 10:47] LABS: Base Excess 6.2 mEq/L (-2.0 to +3.0); Calcium, Ionized (venous) 1.01 mmol/L (1.16-1.32); Chloride (VBG) 92 mmol/L (98-106); Hemoglobin (Hb) 13.8 g/dL (12.6-17.4); Potassium (VBG) 3.34 mmol/L (3.70-5.30); Sodium 131.7 mmol/L (133-146); pH (venous) 7.36 (7.32-7.43)
[2021-08-31 10:53] LABS: Glucose 80 mg/dL (80-115)
[2021-08-31 10:57] LABS: Actual Bicarbonate (HCO3v) 34 mEq/L (22-28)
[2021-08-31 17:34] LABS: Lactic Acid 2.9 mmol/L (0.5-2.2)
[2021-09-01 04:49] LABS: ALT (SGPT) 730 U/L (8-55); AST (SGOT) 1235 U/L (5-34); Albumin 2.6 g/dL (3.4-4.8); Alkaline Phosphatase 231 U/L (40-110); Anion Gap 15 mmol/L (10-20); BUN (Urea Nitrogen) 41 mg/dL (8.4-25.7); Bilirubin, Total 1.6 mg/dL (0.2-1.2); Calc. Creatinine Clearance 54 mL/min (70-130); Calcium 8.1 mg/dL (7.8-10.44); Carbon Dioxide 30 mmol/L (23-31); Chloride 93 mmol/L (98-107); Globulin 2.9 g/dL (2.4-3.5); Glucose 109 mg/dL (80-115); Protein, Total 5.5 g/dL (5.8-8.1); Sodium 135 mmol/L (136-145)
[2021-09-01 04:53] LABS: Potassium 2.7 mmol/L (3.5-5.1)
[2021-09-01] MEDS ORDERED: Potassium Chloride 40 MEQ in Sodium Chloride 0.9% 250 ML 250 ML IVPB SCH (06:00)
[2021-09-01] MEDS: Dextrose 5 %-0.45 % NaCl 1,000 ML IV SCH (06:15)
[2021-09-01 06:45] LABS: #Eosinphils 0.1 thou/uL (0.0-0.7); #Lymphocytes 1.2 thou/uL (1.20-3.40); #Monocytes 0.8 thou/uL (0.11-0.59); #Neutrophils 8.3 thou/uL (1.40-6.50); %Basophils 0.1 % (0.0-1.0); %Eosinophils 0.6 % (0.0-10.0); %Lymphocytes 11.9 % (21.0-51.0); %Monocytes 7.3 % (0.0-10.0); %Neutrophils 80.1 % (42.0-75.0); Anisocytosis SLIGHT = 6-15 cells (100X) (0-5/hpf); Hemoglobin 13.5 g/dL (14.0-18.0); MDiff Complete? YES; Mean Corpuscular HGB CONC 32.2 g/dL (32.0-36.0); Mean Corpuscular Hemoglobin 29.9 pg (27.0-31.0); Mean Platelet Volume 11.7 fL (7.4-10.4); Platelet Count 89 thou/uL (130-400); Platelet Morphology Comment Appears Decreased; RBC Distribution Width 15.8 % (11.5-14.5); Red Blood Cell (RBC) Count 4.51 mill/uL (4.70-6.10); White Blood Cell (WBC) Count 10.4 thou/uL (4.8-10.8)
[2021-09-01] MEDS: Enoxaparin Sodium 60 MG/0.6 ML SYRINGE SC SCH ×2 (08:01→19:58)
[2021-09-01] MEDS: Potassium Chloride 20 MEQ TAB PO SCH ×2 (13:34→17:08)
[2021-09-01] MEDS ORDERED: Melatonin 3 MG TAB PO SCH (20:00)
[2021-09-02] MEDS: Dextrose 5 %-0.45 % NaCl 1,000 ML IV SCH (04:14)
[2021-09-02] MEDS: Enoxaparin Sodium 60 MG/0.6 ML SYRINGE SC SCH (10:05)
[2021-09-02 11:33] LABS: ALT (SGPT) 952 U/L (8-55); AST (SGOT) 1151 U/L (5-34); Albumin 2.6 g/dL (3.4-4.8); Alkaline Phosphatase 276 U/L (40-110); Anion Gap 26 mmol/L (10-20); BUN (Urea Nitrogen) 52 mg/dL (8.4-25.7); Bilirubin, Total 2.3 mg/dL (0.2-1.2); Calc. Creatinine Clearance 49 mL/min (70-130); Calcium 8.5 mg/dL (7.8-10.44); Carbon Dioxide 18 mmol/L (23-31); Chloride 95 mmol/L (98-107); Globulin 3.2 g/dL (2.4-3.5); Glucose 78 mg/dL (80-115); Magnesium 2.2 mg/dL (1.6-2.6); Potassium 4.8 mmol/L (3.5-5.1); Protein, Total 5.8 g/dL (5.8-8.1); Sodium 134 mmol/L (136-145)
[2021-09-02 11:44] LABS: Anisocytosis SLIGHT = 6-15 cells (100X) (0-5/hpf); Band 2 % (5-11); Hemoglobin 16.3 g/dL (14.0-18.0); Large Platelets SLIGHT; Lymphocytes 10 % (21-51); MDiff Complete? YES; Mean Corpuscular HGB CONC 32.4 g/dL (32.0-36.0); Mean Corpuscular Hemoglobin 30.1 pg (27.0-31.0); Mean Platelet Volume 12.5 fL (7.4-10.4); Monocytes 1 % (0-10); Neutrophil 87 % (42-75); Nucleated RBC 2 % (0); Platelet Count 64 thou/uL (130-400); Platelet Morphology Comment Appears Decreased; Polychromasia SLIGHT = 2-3 cells (100X) (0-2/hpf); RBC Distribution Width 16.3 % (11.5-14.5); Red Blood Cell (RBC) Count 5.43 mill/uL (4.70-6.10); White Blood Cell (WBC) Count 12.4 thou/uL (4.8-10.8)
[2021-09-02 14:24] LABS: Lactic Acid 7.6 mmol/L (0.5-2.2)
[2021-09-02] MEDS: Apixaban 5 MG TAB PO SCH (21:14)
[2021-09-03 05:45] LABS: Magnesium 2.2 mg/dL (1.6-2.6)
[2021-09-03 09:03] LABS: Lactic Acid 4.2 mmol/L (0.5-2.2)
[2021-09-03 09:51] LABS: Hemoglobin 15.7 g/dL (14.0-18.0); Mean Corpuscular HGB CONC 32.9 g/dL (32.0-36.0); Mean Corpuscular Hemoglobin 30.9 pg (27.0-31.0); Mean Corpuscular Volume 93.9 fL (78.0-98.0); Mean Platelet Volume 12.9 fL (7.4-10.4); Platelet Count 85 thou/uL (130-400); RBC Distribution Width 16.1 % (11.5-14.5); Red Blood Cell (RBC) Count 5.09 mill/uL (4.70-6.10); White Blood Cell (WBC) Count 9.7 thou/uL (4.8-10.8)
[2021-09-03] MEDS: Apixaban 5 MG TAB PO SCH ×2 (10:15→21:11)
[2021-09-03 10:55] LABS: Burr Cells MODERATE= 6-15 cells (100X) (0-1/hpf); Lymphocytes 11 % (21-51); MDiff Complete? YES; Monocytes 12 % (0-10); Neutrophil 76 % (42-75); Nucleated RBC 2 % (0); Platelet Morphology Comment Appears Decreased; Polychromasia SLIGHT = 2-3 cells (100X) (0-2/hpf); Reactive Lymphocytes 1 % (0-10); Target Cells SLIGHT = 2-5 cells (100X) (0-1/hpf)
[2021-09-03 12:44] LABS: SARS-CoV-2 PCR by NAA Not Detected (NotDetected)
[2021-09-04 05:27] LABS: Magnesium 2.1 mg/dL (1.6-2.6)
[2021-09-04] MEDS: Apixaban 5 MG TAB PO SCH ×2 (10:40→20:42)
[2021-09-04] MEDS: DOBUTamine 500 mg/250 ml 250 ML IVPB SCH (15:11)
[2021-09-04] MEDS: Midodrine HCl 5 MG TAB PO SCH ×2 (15:11→20:42)
[2021-09-05 09:00] LABS: #Eosinphils 0.1 thou/uL (0.0-0.7); #Lymphocytes 0.9 thou/uL (1.20-3.40); #Monocytes 0.9 thou/uL (0.11-0.59); #Neutrophils 6.4 thou/uL (1.40-6.50); %Basophils 0.1 % (0.0-1.0); %Eosinophils 0.6 % (0.0-10.0); %Lymphocytes 11.1 % (21.0-51.0); %Monocytes 10.3 % (0.0-10.0); %Neutrophils 77.9 % (42.0-75.0); Hemoglobin 13.7 g/dL (14.0-18.0); Mean Corpuscular HGB CONC 33.4 g/dL (32.0-36.0); Mean Corpuscular Hemoglobin 30.8 pg (27.0-31.0); Mean Corpuscular Volume 92.3 fL (78.0-98.0); Mean Platelet Volume 10.3 fL (7.4-10.4); Platelet Count 81 thou/uL (130-400); Red Blood Cell (RBC) Count 4.45 mill/uL (4.70-6.10); White Blood Cell (WBC) Count 8.2 thou/uL (4.8-10.8)
[2021-09-05 09:08] LABS: Anion Gap 13 mmol/L (10-20); BUN (Urea Nitrogen) 41 mg/dL (8.4-25.7); Calc. Creatinine Clearance 88 mL/min (70-130); Calcium 8.3 mg/dL (7.8-10.44); Carbon Dioxide 25 mmol/L (23-31); Chloride 97 mmol/L (98-107); Glucose 119 mg/dL (80-115); Potassium 3.6 mmol/L (3.5-5.1); Sodium 131 mmol/L (136-145)
[2021-09-05 09:13] LABS: Lactic Acid 3.8 mmol/L (0.5-2.2)
[2021-09-05] MEDS: Midodrine HCl 5 MG TAB PO SCH ×3 (09:42→21:53)
[2021-09-05] MEDS: Apixaban 5 MG TAB PO SCH ×2 (09:42→21:53)
[2021-09-05] MEDS: DOBUTamine 500 mg/250 ml 250 ML IVPB SCH (14:50)
[2021-09-06 05:22] LABS: ALT (SGPT) 336 U/L (8-55); AST (SGOT) 187 U/L (5-34); Albumin 2.3 g/dL (3.4-4.8); Alkaline Phosphatase 202 U/L (40-110); Bilirubin, Direct 1.4 mg/dL (0.1-0.3); Bilirubin, Total 2.3 mg/dL (0.2-1.2); Protein, Total 5.2 g/dL (5.8-8.1)
[2021-09-06] MEDS ORDERED: DOBUTamine 500 mg/250 ml 250 ML IVPB SCH (08:15)
[2021-09-06] MEDS: Midodrine HCl 5 MG TAB PO SCH ×3 (09:36→20:47)
[2021-09-06] MEDS: Apixaban 5 MG TAB PO SCH ×2 (09:36→20:48)
[2021-09-06 10:32] LABS: #Lymphocytes 0.8 thou/uL (1.20-3.40); #Monocytes 0.8 thou/uL (0.11-0.59); #Neutrophils 6.6 thou/uL (1.40-6.50); %Basophils 0.1 % (0.0-1.0); %Eosinophils 0.6 % (0.0-10.0); %Lymphocytes 9.5 % (21.0-51.0); %Monocytes 9.3 % (0.0-10.0); %Neutrophils 80.5 % (42.0-75.0); Hemoglobin 13.2 g/dL (14.0-18.0); Mean Corpuscular HGB CONC 33.2 g/dL (32.0-36.0); Mean Corpuscular Hemoglobin 30.8 pg (27.0-31.0); Mean Corpuscular Volume 92.6 fL (78.0-98.0); Mean Platelet Volume 10.6 fL (7.4-10.4); Platelet Count 75 thou/uL (130-400); RBC Distribution Width 16.1 % (11.5-14.5); Red Blood Cell (RBC) Count 4.28 mill/uL (4.70-6.10); White Blood Cell (WBC) Count 8.2 thou/uL (4.8-10.8)
[2021-09-06 10:52] LABS: Lactic Acid 2.6 mmol/L (0.5-2.2)
[2021-09-06 10:55] LABS: Anion Gap 11 mmol/L (10-20); BUN (Urea Nitrogen) 24 mg/dL (8.4-25.7); Calc. Creatinine Clearance 105 mL/min (70-130); Calcium 8.4 mg/dL (7.8-10.44); Carbon Dioxide 30 mmol/L (23-31); Chloride 95 mmol/L (98-107); Glucose 87 mg/dL (80-115); Sodium 133 mmol/L (136-145)
[2021-09-06 12:45] VITALS: BMI 22.8
[2021-09-07 04:47] LABS: #Eosinphils 0.1 thou/uL (0.0-0.7); #Lymphocytes 0.8 thou/uL (1.20-3.40); #Monocytes 0.9 thou/uL (0.11-0.59); #Neutrophils 7.2 thou/uL (1.40-6.50); %Basophils 0.1 % (0.0-1.0); %Eosinophils 0.6 % (0.0-10.0); %Lymphocytes 8.6 % (21.0-51.0); %Monocytes 10.1 % (0.0-10.0); %Neutrophils 80.7 % (42.0-75.0); Hemoglobin 13.3 g/dL (14.0-18.0); Mean Corpuscular HGB CONC 33.6 g/dL (32.0-36.0); Mean Corpuscular Hemoglobin 31.3 pg (27.0-31.0); Mean Corpuscular Volume 92.9 fL (78.0-98.0); Platelet Count 80 thou/uL (130-400); RBC Distribution Width 16.3 % (11.5-14.5); Red Blood Cell (RBC) Count 4.26 mill/uL (4.70-6.10)
[2021-09-07] MEDS: Apixaban 5 MG TAB PO SCH ×2 (09:16→21:28)
[2021-09-07] MEDS: Midodrine HCl 5 MG TAB PO SCH ×3 (09:16→21:28)
[2021-09-07 15:44] LABS: Anion Gap 11 mmol/L (10-20); BUN (Urea Nitrogen) 15 mg/dL (8.4-25.7); Calc. Creatinine Clearance 96 mL/min (70-130); Calcium 8.8 mg/dL (7.8-10.44); Carbon Dioxide 31 mmol/L (23-31); Chloride 98 mmol/L (98-107); Glucose 94 mg/dL (80-115); Phosphorus 2.6 mg/dL (2.3-4.7); Potassium 3.2 mmol/L (3.5-5.1); Sodium 137 mmol/L (136-145)
[2021-09-07] MEDS ORDERED: Potassium Chloride 20 MEQ TAB PO SCH (16:45)
[2021-09-07] MEDS: Potassium Chloride 10 MEQ in Premix Bag 1 BAG IVPB SCH ×3 (17:51→21:29)
[2021-09-08] MEDS: Potassium Chloride 10 MEQ in Premix Bag 1 BAG IVPB SCH (01:23)
[2021-09-08 04:47] LABS: #Lymphocytes 0.8 thou/uL (1.20-3.40); #Monocytes 1.1 thou/uL (0.11-0.59); #Neutrophils 8.1 thou/uL (1.40-6.50); %Basophils 0.3 % (0.0-1.0); %Eosinophils 0.4 % (0.0-10.0); %Lymphocytes 8.4 % (21.0-51.0); %Neutrophils 79.9 % (42.0-75.0); Hemoglobin 13.6 g/dL (14.0-18.0); Mean Corpuscular HGB CONC 33.4 g/dL (32.0-36.0); Mean Corpuscular Hemoglobin 31.5 pg (27.0-31.0); Mean Corpuscular Volume 94.2 fL (78.0-98.0); Mean Platelet Volume 10.5 fL (7.4-10.4); Platelet Count 88 thou/uL (130-400); RBC Distribution Width 16.8 % (11.5-14.5); Red Blood Cell (RBC) Count 4.31 mill/uL (4.70-6.10); White Blood Cell (WBC) Count 10.1 thou/uL (4.8-10.8)
[2021-09-08] MEDS: Midodrine HCl 5 MG TAB PO SCH ×2 (08:17→16:22)
[2021-09-08] MEDS: Apixaban 5 MG TAB PO SCH (08:17)
[2021-09-08 09:18] LABS: Anion Gap 12 mmol/L (10-20); BUN (Urea Nitrogen) 11 mg/dL (8.4-25.7); Calc. Creatinine Clearance 113 mL/min (70-130); Calcium 8.4 mg/dL (7.8-10.44); Carbon Dioxide 25 mmol/L (23-31); Chloride 101 mmol/L (98-107); Glucose 97 mg/dL (80-115); Magnesium 1.9 mg/dL (1.6-2.6); Sodium 134 mmol/L (136-145)
[2021-09-08 16:29] VITALS: BP 109/81; TEMP 97.4
== END 2021-09-08 16:30 | disposition home or self-care (01) | DRG 175 ==
LOC: ERS 17:21 → 2SW 20:02 → OBSVTOIN 08-27 00:51 → CCU 08-29 12:39 → 2NO 09-01 06:13
PROVIDERS: ADMIT Internal Medicine; ATTEND Internal Medicine
PROC: 0W993ZZ Drainage of Right Pleural Cavity, Percutaneous Approach (ICD-10-PCS; principal; 2021-08-30)
DX: I26.99 Other pulmonary embolism without acute cor pulmonale (principal); Z66 Do not resuscitate; Z20.822 Contact with and (suspected) exposure to COVID-19; I50.23 Acute on chronic systolic (congestive) heart failure; J96.01 Acute respiratory failure with hypoxia; I13.0 Hypertensive heart and chronic kidney disease with heart failure and stage 1 through stage 4 chronic kidney disease, or unspecified chronic kidney disease; N17.9 Acute kidney failure, unspecified; J91.8 Pleural effusion in other conditions classified elsewhere; D69.3 Immune thrombocytopenic purpura; E87.1 Hypo-osmolality and hyponatremia; E87.4 Mixed disorder of acid-base balance; I47.2 Ventricular tachycardia; I25.10 Atherosclerotic heart disease of native coronary artery without angina pectoris; R77.8 Other specified abnormalities of plasma proteins; J44.9 Chronic obstructive pulmonary disease, unspecified; F17.210 Nicotine dependence, cigarettes, uncomplicated; I25.5 Ischemic cardiomyopathy; E78.5 Hyperlipidemia, unspecified; F14.10 Cocaine abuse, uncomplicated; N18.9 Chronic kidney disease, unspecified; R94.5 Abnormal results of liver function studies; E87.5 Hyperkalemia; E87.6 Hypokalemia; E16.2 Hypoglycemia, unspecified; I95.9 Hypotension, unspecified; L89.90 Pressure ulcer of unspecified site, unspecified stage; Z79.899 Other long term (current) drug therapy; Z79.82 Long term (current) use of aspirin; Z98.49 Cataract extraction status, unspecified eye; Z80.9 Family history of malignant neoplasm, unspecified; Z91.19 Patient's noncompliance with other medical treatment and regimen
CPT/HCPCS: 0240U; 36415; 36416; 36600; 71045; 71275; 74176; 80048; 80053; 80076; 80306; 82533; 82550; 82553; 82805; 82945; 82947; 83036; 83525; 83605; 83615; 83735; 83880; 84100; 84145; 84157; 84484; 85025; 85060; 87040; 87070; 87205; 88112; 89051; 93005; 93306; 93970; 96372; J0692; J1250; J1610; J1650; J1940; J3370; J3480; J3490; J7042; J7050; J7120; J7620; Q9967; U0003; U0005